=== PATIENT | male | born 1990 | race Asian ===

== ENCOUNTER 2018-04-12 00:57 | Emergency (ER) | payer SELFPAY ==
[~2018-04-12] VITALS: Ht 162.6 cm; Wt 74.0 kg
[2018-04-12 01:08] VITALS: BP 140/88; Ht 162.6 cm; Wt 74.0 kg
== END 2018-04-12 01:22 | disposition left against medical advice (07) ==
LOC: ED 00:57
DX: Z53.21 Procedure and treatment not carried out due to patient leaving prior to being seen by health care provider (principal)